=== PATIENT | female | born 1945 | race Caucasian/White ===

== ENCOUNTER → 2017-06-11 | Outpatient (CLI) | payer MEDICARE ==
[~2017-06-11] VITALS: Ht 172.7 cm; Wt 123.2 kg
[~2017-06-11] MED LIST: ASPI-586 PO; ASPI-875 PO; B CO1CAP PO; DOXY-233 PO; DXCC100C PO; FLAX1CAP6 PO; FLEC100T PO; FLEC100T2 PO; FRESHKOTE EYE OU; HYDR25TA4 PO; LOSA50TA6 PO; ONDA-42 SL; ONDA4TAB11 PO; OXYC1TAB87 PO; SULF1TAB7 PO
[2017-06-11 12:53] VITALS: BP 129/78
[2017-06-11 13:49] LABS: BASOPHILS % (AUTO) 0 % (0-10); EOSINOPHILS # (AUTO) 0.2 10^3/uL (0.0-0.3); EOSINOPHILS % (AUTO) 4 % (0-10); LYMPHOCYTES # (AUTO) 1.8 X 10^3 (1.0-4.0); LYMPHOCYTES % (AUTO) 37 % (12-44); MEAN CORPUSCULAR HEMOGLOBIN 34 PG (25-34); MEAN CORPUSCULAR HGB CONC 34 G/DL (32-36); MEAN CORPUSCULAR VOLUME 98 FL (80-99); MEAN PLATELET VOLUME 10.3 FL (7.4-10.4); MONOCYTES # (AUTO) 0.8 X 10^3 (0.0-1.0); MONOCYTES % (AUTO) 16 % (0-12); NEUTROPHILS # (AUTO) 2.1 X 10^3 (1.8-7.8); NEUTROPHILS % (AUTO) 43 % (42-75); PLATELET COUNT 219 10^3/uL (130-400); RED BLOOD COUNT 4.71 10^6/uL (4.35-5.85); RED CELL DISTRIBUTION WIDTH 13.2 % (10.0-14.5)
[2017-06-11 14:32] LABS: ALANINE AMINOTRANSFERASE 18 U/L (0-55); ALBUMIN 3.7 GM/DL (3.2-4.5); ANION GAP 11 MMOL/L (5-14); ASPARTATE AMINO TRANSFERASE 25 U/L (5-34); BILIRUBIN,TOTAL 1.3 MG/DL (0.1-1.0); BLOOD UREA NITROGEN 10 MG/DL (7-18); BUN/CREATININE RATIO 14; CALCIUM 9.3 MG/DL (8.5-10.1); CARBON DIOXIDE 24 MMOL/L (21-32); CHLORIDE 108 MMOL/L (98-107); CREATININE SERUM 0.71 MG/DL (0.60-1.30); GFR ESTIMATED > 60; GLUCOSE 94 MG/DL (70-105); POTASSIUM 3.9 MMOL/L (3.6-5.0); SODIUM 143 MMOL/L (135-145); TOTAL PROTEIN 7.3 GM/DL (6.4-8.2)
== END ==
LOC: PREOP 12:35
PROVIDERS: ATTEND Obstetrics & Gynecology
DX: Z01.812 Encounter for preprocedural laboratory examination (principal); C54.1 Malignant neoplasm of endometrium; I48.2 Chronic atrial fibrillation
CPT/HCPCS: 36415; 80053; 85025; 86850; 86900; 86901; 87081

== ENCOUNTER → 2019-06-02 | Outpatient (CLI) | payer MEDICARE ==
[~2019-06-02] VITALS: Ht 167 cm; Wt 122.0 kg
[~2019-06-02] MED LIST changes: +CARB15DR OU; +DOCU100C37 PO; +FA/M1TAB29 PO; +FLAX100031 PO; +Hydrocodone Bit/Acetaminophen PO; +IBUP-1773 PO; +LATA2.5D5 OU; +REGADENOSON 0.4 MG/5 ML SYR (LEXISCAN) IV ONE; +SIME80TA16 PO
[2019-06-02] MEDS: CATHETER FLUSH 10 ML SYR IV PRN ×2 (11:41→13:07)
[2019-06-02 13:06] VITALS: BP 129/81
--- NOTE | 2019-06-02 16:02 | STRESS TEST ---
DATE OF SERVICE: 06/02/2019 LEXISCAN MYOVIEW STRESS TEST REPORT Baseline heart rate is 62. Baseline blood pressure 129/81. Baseline EKG is sinus rhythm with occasional PVCs. In summary, the patient was injected with 10.47 mCi of technetium-99 Myoview and the resting images were obtained. Then, the patient received 0.4 mg of Lexiscan followed by 28.6 mCi of technetium-99 Myoview. Throughout the test, there were no EKG changes. The resting and stress images were reviewed and compared in the short axis, horizontal long axis, and vertical long axis views. Review of the images showed breast attenuation with reversible ischemia involving the mid to apical anterior wall and anterolateral wall. SSS is 11, SDS 11 TID value 1.08. On the gated images, the left ventricle appeared to be in normal size with normal contractility. Calculated ejection fraction 74%. CONCLUSION: 1. The patient tolerated Lexiscan well. 2. Breast attenuation with reversible ischemia involving the mid to apical anterior wall and anterolateral wall. 3. Normal left ventricular size with normal contractility. Calculated ejection fraction 74%. Job ID: [id number] DocumentID: [id number] Dictated Date: 06/02/2019 15:45:20 Clerk Typist Date: 06/02/2019 16:01:54 Dictated By: FERNANDO ALLISON MD
== END ==
LOC: CARD 11:12
PROVIDERS: ATTEND Internal Medicine Cardiovascular Disease
DX: I48.0 Paroxysmal atrial fibrillation (principal); I10 Essential (primary) hypertension; G47.33 Obstructive sleep apnea (adult) (pediatric)
CPT/HCPCS: 78452; 93017

== ENCOUNTER 2019-06-04 07:42 | Day surgery (SDC) | payer MEDICARE ==
[2019-06-04] VITALS (12 sets, daily range): BP systolic 109–168; BP diastolic 60–91
[~2019-06-04] VITALS: Ht 167 cm; Wt 120.0 kg
[~2019-06-04 07:42] MED LIST changes: -CARB15DR OU; -FA/M1TAB29 PO; -FLAX100031 PO; -LATA2.5D5 OU; -REGADENOSON 0.4 MG/5 ML SYR (LEXISCAN) IV ONE
[2019-06-04] MEDS ORDERED: NS IV 1000 ML 1,000 ML ONE (07:46)
[2019-06-04] MEDS ORDERED: LIDOCAINE 1% INJ 20 ML 20 ML VIAL ONE (07:46)
[2019-06-04] MEDS ORDERED: HEParin (CATH LAB) 2,000 ML IV ONE (07:46)
[2019-06-04] MEDS ORDERED: NS IV 1000 ML 1,000 ML IV SCH ×2 (07:50→11:11)
[2019-06-04 08:16] LABS: HEMOGLOBIN 15.8 G/DL (11.5-16.0); MEAN PLATELET VOLUME 10.1 FL (7.4-10.4); RED CELL DISTRIBUTION WIDTH 13.3 % (10.0-14.5); WHITE BLOOD COUNT 5.2 10^3/uL (4.3-11.0)
--- NOTE | 2019-06-04 08:17 | Diagnostic Imaging Report ---
INDICATION: Chest pain Portable chest at 8:07 AM Heart size and pulmonary vascularity are normal. Lungs are clear. There are no effusions or pneumothoraces. IMPRESSION: Negative chest Dictated by: Dictated on workstation # [id number]
[2019-06-04] MEDS ORDERED: methylPREDNISolone 125 MG (Solu-MEDROL) VIAL ONE (08:21)
[2019-06-04] MEDS ORDERED: LATA2.5D5 OU (08:27)
[2019-06-04] MEDS ORDERED: FA/M1TAB29 PO (08:27)
[2019-06-04] MEDS ORDERED: FLAX100031 PO (08:27)
[2019-06-04] MEDS ORDERED: CARB15DR OU (08:27)
[2019-06-04 08:28] LABS: INR 1.1 (0.8-1.4); PROTHROMBIN TIME PATIENT 14.5 SEC (12.2-14.7)
[2019-06-04 08:33] LABS: ALANINE AMINOTRANSFERASE 19 U/L (0-55); ALKALINE PHOSPHATASE 58 U/L (40-136); BILIRUBIN,TOTAL 1.6 MG/DL (0.1-1.0); BUN/CREATININE RATIO 13; CALCIUM 9.8 MG/DL (8.5-10.1); CARBON DIOXIDE 24 MMOL/L (21-32); CHLORIDE 104 MMOL/L (98-107); CREATININE SERUM 0.75 MG/DL (0.60-1.30); GFR ESTIMATED > 60; GLUCOSE 128 MG/DL (70-105); POTASSIUM 3.7 MMOL/L (3.6-5.0); SODIUM 140 MMOL/L (135-145); TOTAL PROTEIN 7.4 GM/DL (6.4-8.2)
[2019-06-04] MEDS ORDERED: methylPREDNISolone 125 MG (Solu-MEDROL) VIAL IVP ONE (09:00)
--- NOTE | 2019-06-04 10:28 | Cardiac Procedure Note-CS/ASA ---
Pre-Procedure Note Pre-Op Procedure Note H&P Reviewed The H&P was reviewed, patient examined and no changes noted. Date H&P Reviewed: Jun 04, 2019 Time H&P Reviewed: 10:28 Conscious Sedation Pre-Proced Time 10:28 ASA Score 3 For ASA 3 and 4: Consider anesthesia and medical clearance. Also, for patients with a history of failed moderate sedation consider anesthesia. Airway Lungs Heart ASA score ASA 1: a normal healthy patient ASA 2: a patient with a mild systemic disease (mid diabetes, controlled hypertension, obesity x ASA 3: a patient with a severe systemic disease that limits activity (angina, COPD, prior Myocardial infarction) ASA 4: a patient with an incapacitating disease that is a constant threat to life (CHF, renal failure) ASA 5: a moribund patient not expected to survive 24 hrs. (ruptured aneurysm) ASA 6: a declared brain- patient whose organs are being harvested. For emergent operations, add the letter E after the classification Mallampati Classification Grade 3 Sedation Plan Analgesia, Amnesia, Plan communicated to team members, Discussed options with patient/fam, Discussed risks with patient/fam The patient is an appropriate candidate to undergo the planned procedure, sedation, and anesthesia. The patient immediately re-assessed prior to indication. FERNANDO ALLISON MD Jun 04, 2019 10:28 POS
[2019-06-04] MEDS ORDERED: HEParin 1000 UNIT/ML (10ML VIAL) FOR BOLUS ONE (10:30)
[2019-06-04] MEDS ORDERED: diphenhydrAMINE 50 MG/ML INJ (BENADRYL) ONE (10:30)
[2019-06-04] MEDS ORDERED: VERAPAMIL 5 MG/2 ML (CALAN) VIAL IV ONE (10:30)
[2019-06-04] MEDS ORDERED: MIDAZOLAM 5 MG/5 ML (VERSED) VIAL ONE (10:30)
[2019-06-04] MEDS ORDERED: NITRO DRIP 25000 MCG/D5W 250 ML IV ONE (10:30)
[2019-06-04] MEDS ORDERED: fentaNYL INJECTION 100 MCG/2 ML AMP ONE (10:30)
--- NOTE | 2019-06-04 11:12 | Discharge Inst-Post CATH ---
Discharge Inst-CATH/EP Problems Reviewed?: Yes Post Cardiac Cath/EP D/C Inst Follow Up/Plan Appointment with Dr. Baker's office in 2-4 weeks <b>CARDIAC CATH/EP PROCEDURE DISCHARGE INSTRUCTIONS</b> ACTIVITY * Go Home directly and rest. * Limit activity of the leg (or wrist if it was used) for 7 days including aerobics, swimming, jogging, bicycling, etc. * Restrict stair-climbing for 7 days if possible, if not, climb up with your non-cath leg, then bring together on the same step. * Avoid lifting, pushing, pulling or excessive movement of the affected extremity for 7 days. * Customary sexual activity may be resumed after 2 days-use caution not to use a position that strains or causes pain to the affected extremity. * No driving for 24 hours. * NO SMOKING. * Avoid straining for bowel movements for 7 days. * Gentle walking on level ground is allowed. * Returning to work will depend on the type of procedure and the results. Your doctor will discuss this with you. CALL YOUR DOCTOR FOR ANY OF THE FOLLOWING: *If bleeding from the puncture site occurs- Apply gentle pressure to site with clean cloth and call your doctor or EMS. * If a knot or lump forms under the skin, increases in size, or causes pain. * If bruising appears to be worsening or moving further down your leg instead of disappearing. * Temperature above 101 F. CARE OF YOUR GROIN INCISION; * Bruising or purple discoloration of the skin near the puncture site is common. * You may shower only, no bathtub bathing for 5 days. Be careful to avoid slipping as your leg may feel stiff. * If a closure device was used on your femoral artery, please see the attached guide regarding care of the device and your leg. * Leave dressing on FOR 24 hours. CARE OF YOUR WRIST INCISION; * Bruising or purple discoloration of the skin near the puncture site is common. * You may shower. * DO NOT submerge wrist. * Leave dressing on FOR 24 hours. FERNANDO BAKER MD Jun 04, 2019 11:12 POS
--- NOTE | 2019-06-04 11:17 | Cardiac Cath Report ---
Cardiac Cath Report Physician (s)/Facility Security Officer (s) Physician FERNANDO ALLISON MD Pre-Procedure Diagnosis Pre-Procedure Diagnosis: Coronary artery disease, atrial fibrillation Post-Procedure Note Procedure Start Date: Jun 04, 2019 Name of Procedure: Left heart catheterization Aortic arch angiogram Findings/Procedure Note PROCEDURE NOTE: 73-year-old lady with history of paroxysmal atrial fibrillation maintained on flecainide had an abnormal stress test with anterior wall ischemia scheduled for cardiac catheterization possible PTCA, during the procedure I had difficulty advancing the wire and the sheath through the right innominate artery and the proximal aorta, at the end of the coronary angiogram I perform aortic arch angiogram. After explaining the procedure to the patient, all pros and cons were explained, all questions were answered. The patient signed the consent and then she was placed on the cardiac catheterization laboratory. Groin was prepped SL fashion local anesthesia was used. Sheath placed in the right radial artery, [place] catheter was used to access coronary system, angiogram was done, advanced to the left ventricular cavity pressure was measured pullback LV to aorta was done, I did aortic arch and a gram to evaluate the aortic arch and the innominate artery due to the significant tortuosity At the end of the procedure the sheath was removed. vascular band was used FINDINGS: Hemodynamics LV 117/11, end-diastolic pressure of 11 Aorta 109/63 mean of 84 ANATOMY: Left Main is free of obstructive disease Left Anterior Descending has mild disease nonobstructive disease Left Circumflex has mild disease nonobstructive disease Right Coronory Artery has mild disease nonobstructive disease LV Gram was not done, pressure was measured Aorta evaluation done with aortic arch angiogram showing normal aortic arch, no dissection or aneurysm, tortuous proximal innominate artery and right carotid artery, no dissection or aneurysm, normal left carotid and left subclavian artery CONCLUSION: 1. Mild coronary artery disease no significant obstructive disease 2. Normal left ventricle end-diastolic pressure 3. Normal aortic arch and great vessels of the neck DISCUSSION AND RECOMMENDATION: medical therapy is recommended no intervention is needed Anesthesia Type: Conscious Sedation Estimated blood loss (mL): 10 ml Contrast Amount: 40 ml Total Radiation Dose: 167 mGy Post-Procedure Diagnosis Post-operative diagnosis: Coronary artery disease Paroxysmal atrial fibrillation Hypertension Hyperlipidemia FERNANDO ALLISON MD Jun 04, 2019 11:17 POS
--- NOTE | 2019-06-04 11:37 | NUR ---
SPOKE WITH PT (SHE HAD HER BOTTLES) AND CALLED [facility] TO COMPLETE THE MED REC. PT WAS ABLE TO TELL ME HER MEDS AND HOW SHE TAKES THEM. THE FOLLOWING ARE FILL DATES FROM [facility]: FLECAINIDE #180/90DS 04-07-2019 HCTZ #90/90DS 05-25-2019 LATANOPROST #08/14DS OTC MEDS: [employer] FLAX SEED REFRESH ASPIRIN 81
[2019-06-04] MEDS ORDERED: ACETAMINOPHEN 500 MG TAB (TYLENOL) ONE (13:24)
[2019-06-04] MEDS ORDERED: ACETAMINOPHEN 500 MG TAB (TYLENOL) PO ONE (13:30)
== END 2019-06-04 14:20 | disposition home or self-care (01) ==
LOC: CATH 07:42 → SDC 11:30 → CATH 14:20
PROVIDERS: ATTEND Internal Medicine Cardiovascular Disease
DX: I25.10 Atherosclerotic heart disease of native coronary artery without angina pectoris (principal); I48.0 Paroxysmal atrial fibrillation; I10 Essential (primary) hypertension; E78.5 Hyperlipidemia, unspecified; G47.33 Obstructive sleep apnea (adult) (pediatric); Z88.6 Allergy status to analgesic agent; Z88.3 Allergy status to other anti-infective agents; J44.9 Chronic obstructive pulmonary disease, unspecified; Z79.82 Long term (current) use of aspirin; E66.01 Morbid (severe) obesity due to excess calories; Z68.41 Body mass index [BMI] 40.0-44.9, adult; K21.9 Gastro-esophageal reflux disease without esophagitis; Z80.3 Family history of malignant neoplasm of breast; Z83.3 Family history of diabetes mellitus; Z82.49 Family history of ischemic heart disease and other diseases of the circulatory system; Z90.49 Acquired absence of other specified parts of digestive tract; Z90.722 Acquired absence of ovaries, bilateral; Z90.79 Acquired absence of other genital organ(s); Z90.710 Acquired absence of both cervix and uterus
CPT/HCPCS: 36221; 36415; 71045; 80053; 85027; 85610; 85730; 87081; 93458

== ENCOUNTER 2019-06-24 05:45 | Outpatient (CLI) | payer MEDICARE ==
[~2019-06-24] VITALS: Ht 167.7 cm; Wt 120.0 kg
[~2019-06-24 05:45] MED LIST changes: +CARB15DR OU; +FA/M1TAB29 PO; +FLAX100031 PO; +LATA2.5D5 OU
[2019-07-02] MEDS ORDERED: CEPH-507 PO (11:17)
[2019-07-02] MEDS ORDERED: ACHD5005 PO (11:17)
== END 2019-06-24 13:53 | disposition home or self-care (01) ==
LOC: PREOP 05:45
PROVIDERS: ATTEND Otolaryngology Otolaryngology/Facial Plastic Surgery
DX: Z01.818 Encounter for other preprocedural examination (principal)

== ENCOUNTER → 2019-06-30 | Day surgery (SDC) | payer MEDICARE ==
[~2019-06-30] VITALS: Ht 168 cm; Wt 122.0 kg
[~2019-06-30] MED LIST changes: +ACHD5005 PO; +CEPH-507 PO; +LIDOCAINE 1% INJ 20 ML 20 ML VIAL INJ ONE; +LIDOCAINE 1% INJ 20 ML 20 ML VIAL ONE
[2019-06-30 08:26] VITALS: BP 164/91
[2019-06-30 09:48] VITALS: BP 134/70
--- NOTE | 2019-06-30 09:48 | Implantation of Loop Monitor ---
Implant of Loop Monitior IMPLANTATION OF LOOP MONITOR REPORT DATE OF PROCEDURE: 06/30/19 PREOP DIAGNOSIS: proximal atrial fibrillation POSTOP DIAGNOSIS: paroxysmal atrial fibrillation PROCEDURE DETAILS: The patient is a 73 female with history of paroxysmal atrial fibrillation requiring long-term surveillance. Therefore implantable loop recorder was discussed and agreed with the patient. Informed consent was taken. All risks and complications were discussed at length. The patient was draped and prepped in the usual sterile fashion. Local anesthesia was lidocaine, which was given in the substernal area close to the 4th intercostal space. Loop monitor chronic with serial number [id number] implanted according to the protocol. Steri- Strips were placed at the end of the procedure. There were no complications and the patient tolerated the procedure well. The device was interrogated with a voltage of. ANESTHESIA: Local anesthesia with lidocaine. COMPLICATIONS: None CONTRAST/FLUOROSCOPY: None CONCLUSION: Successful implantation of a loop recorder would no complications FINAL DIAGNOSIS: Paroxysmal atrial fibrillation Palpitation Coronary artery disease Hypertension FERNANDO ALLISON MD Jun 30, 2019 09:48 POS
== END ==
LOC: CATH 07:55
PROVIDERS: ATTEND Internal Medicine Cardiovascular Disease
DX: I48.0 Paroxysmal atrial fibrillation (principal); I25.10 Atherosclerotic heart disease of native coronary artery without angina pectoris; I10 Essential (primary) hypertension; G47.33 Obstructive sleep apnea (adult) (pediatric); Z88.8 Allergy status to other drugs, medicaments and biological substances; Z79.82 Long term (current) use of aspirin; Z79.899 Other long term (current) drug therapy; Z80.3 Family history of malignant neoplasm of breast; Z83.3 Family history of diabetes mellitus; Z82.49 Family history of ischemic heart disease and other diseases of the circulatory system
CPT/HCPCS: 33285

== ENCOUNTER 2021-05-02 07:16 | Day surgery (SDC) | payer MEDICARE ==
[2021-05-02] VITALS (7 sets, daily range): BP systolic 139–193; BP diastolic 87–899
[~2021-05-02] VITALS: Ht 167.6 cm; Wt 121.1 kg
[~2021-05-02 07:16] MED LIST changes: -LIDOCAINE 1% INJ 20 ML 20 ML VIAL INJ ONE; -LIDOCAINE 1% INJ 20 ML 20 ML VIAL ONE
[2021-05-02] MEDS ORDERED: NS IV 1000 ML 1,000 ML ONE (07:22)
[2021-05-02] MEDS ORDERED: LIDOCAINE 2% VISCOUS 15 ML UDC ONE (07:22)
[2021-05-02] MEDS ORDERED: LIDOCAINE 2% VISCOUS 15 ML UDC PO ONE (07:30)
[2021-05-02] MEDS ORDERED: MIDAZOLAM 5 MG/5 ML (VERSED) VIAL IV ONE (07:30)
[2021-05-02] MEDS ORDERED: fentaNYL INJ 100 MCG/2 ML AMP IV ONE (07:30)
[2021-05-02] MEDS ORDERED: NS IV 1000 ML 1,000 ML IV ONE (07:30)
[2021-05-02 07:56] LABS: HEMATOCRIT 46 % (35-52); HEMOGLOBIN 15.8 g/dL (11.5-16.0); MEAN CORPUSCULAR HEMOGLOBIN 35 pg (25-34); MEAN CORPUSCULAR HGB CONC 34 g/dL (32-36); MEAN CORPUSCULAR VOLUME 102 fL (80-99); MEAN PLATELET VOLUME 9.4 fL (9.0-12.2); PLATELET COUNT 204 10^3/uL (130-400); WHITE BLOOD COUNT 5.3 10^3/uL (4.3-11.0)
[2021-05-02 07:57] LABS: BILIRUBIN,URINE NEGATIVE (NEGATIVE); CLARITY,URINE CLEAR; COLOR,URINE YELLOW; GLUCOSE, URINE (UA) NEGATIVE (NEGATIVE); KETONES,URINE NEGATIVE (NEGATIVE); LEUKOCYTE ESTERASE ,URINE 2+ (NEGATIVE); NITRITE,URINE NEGATIVE (NEGATIVE); PH,URINE 6.5 (5-9); PROTEIN,URINE NEGATIVE (NEGATIVE)
[2021-05-02] MEDS ORDERED: MIDAZOLAM 2 MG/2 ML (VERSED) VIAL ONE (07:58)
[2021-05-02] MEDS ORDERED: proPOfol 200 MG/20 ML (DIPRIVAN) VIAL IV ONE (07:58)
[2021-05-02 08:06] LABS: BACTERIA,URINE MODERATE /HPF; WBC,URINE 25-50 /HPF
[2021-05-02 08:14] LABS: ALBUMIN 3.5 GM/DL (3.2-4.5); INR 2.2 (0.8-1.4); POTASSIUM 3.7 MMOL/L (3.6-5.0)
[2021-05-02 08:15] LABS: CALCIUM 9.4 MG/DL (8.5-10.1)
[2021-05-02 08:17] LABS: TOTAL PROTEIN 6.9 GM/DL (6.4-8.2)
[2021-05-02 08:20] LABS: CREATININE SERUM 0.69 MG/DL (0.60-1.30)
[2021-05-02] MEDS ORDERED: MULT-1060 PO (08:20)
[2021-05-02] MEDS ORDERED: FLAX1CAP4 PO (08:20)
[2021-05-02] MEDS ORDERED: FLUO40CR8 TP (08:20)
[2021-05-02] MEDS ORDERED: LATA7.5D OU (08:20)
[2021-05-02] MEDS ORDERED: VITA1TAB33 PO (08:20)
[2021-05-02] MEDS ORDERED: ASPI-1238 PO (08:20)
[2021-05-02] MEDS ORDERED: MINE3.5O41 OU (08:20)
[2021-05-02] MEDS ORDERED: FLEC100T PO (08:20)
[2021-05-02] MEDS ORDERED: RIVA20TA PO (08:20)
[2021-05-02] MEDS ORDERED: CARB15DR OU (08:20)
[2021-05-02] MEDS ORDERED: IBUP-2473 PO (08:21)
--- NOTE | 2021-05-02 08:21 | Diagnostic Imaging Report ---
Indication: Pre-transesophageal echo. TIME OF EXAM: 7:51 AM Correlation is made with prior chest 06/04/2019. Heart size stable. Monitoring device overlies the heart. Lungs are clear. No infiltrate is seen. There is no failure. No effusion or pneumothorax is identified. IMPRESSION: Mild cardiomegaly. No acute cardiopulmonary process is detected. Dictated by: Dictated on workstation # [id number]
--- NOTE | 2021-05-02 08:56 | Conscious Sedation/ASA ---
Conscious Sedation Pre-Proced Time 08:56 ASA Score 3 For ASA 3 and 4: Consider anesthesia and medical clearance. Also, for patients with a history of failed moderate sedation consider anesthesia. Airway Lungs Heart ASA score ASA 1: a normal healthy patient ASA 2: a patient with a mild systemic disease (mid diabetes, controlled hypertension, obesity x ASA 3: a patient with a severe systemic disease that limits activity (angina, COPD, prior Myocardial infarction) ASA 4: a patient with an incapacitating disease that is a constant threat to life (CHF, renal failure) ASA 5: a moribund patient not expected to survive 24 hrs. (ruptured aneurysm) ASA 6: a declared brain- patient whose organs are being harvested. For emergent operations, add the letter E after the classification Mallampati Classification Grade 3 Sedation Plan Analgesia, Amnesia, Plan communicated to team members, Discussed options with patient/fam, Discussed risks with patient/fam The patient is an appropriate candidate to undergo the planned procedure, sedation, and anesthesia. The patient immediately re-assessed prior to indication. FERNANDO ALLISON MD May 02, 2021 08:56
--- NOTE | 2021-05-02 08:57 | Cardioversion ---
Cardioversion PROCEDURE PHYSICIAN: Fernando Baker DATE OF PROCEDURE: 05/02/21 DIRECT EXTERNAL ELECTRICAL CARDIOVERSION: Indications: Atrial Fibrillation with rapid ventricular rate Preoperative diagnoses: Atrial Fibrillation with rapid ventricular rate Postoperative diagnosis: Sinus rhythm, Successful Electrical Cardioversion Anesthesia: By Anesthesia services Complications: None Specimen: None Contrast: 0 Flouroscopy: none Procedure Details: The patient was brought the lab assistant after informed consent was taken, all the risks and complications were explained including the risk of stroke. Electrical cardioversion was carried out with anesthesia support with propofol. 200 joules of synchronized shock was delivered through external patches which promptly restored sinus rhythm. The patient tolerated the procedure well. Conclusions: Successful electrical cardioversion in terminating atrial fibrillation Final Diagnosis: Paroxysmal atrial fibrillation Palpitation Hypertension FERNANDO BAKER MD May 02, 2021 08:57
--- NOTE | 2021-05-02 08:59 | Discharge Inst-Post CATH ---
Discharge Inst-CATH/EP Problems Reviewed?: Yes Post Cardiac Cath/EP D/C Inst Follow Up/Plan Appointment with Dr. Baker's office next week <b>CARDIAC CATH/EP PROCEDURE DISCHARGE INSTRUCTIONS</b> ACTIVITY * Go Home directly and rest. * Limit activity of the leg (or wrist if it was used) for 7 days including aerobics, swimming, jogging, bicycling, etc. * Restrict stair-climbing for 7 days if possible, if not, climb up with your non-cath leg, then bring together on the same step. * Avoid lifting, pushing, pulling or excessive movement of the affected extremity for 7 days. * Customary sexual activity may be resumed after 2 days-use caution not to use a position that strains or causes pain to the affected extremity. * No driving for 24 hours. * NO SMOKING. * Avoid straining for bowel movements for 7 days. * Gentle walking on level ground is allowed. * Returning to work will depend on the type of procedure and the results. Your doctor will discuss this with you. CALL YOUR DOCTOR FOR ANY OF THE FOLLOWING: *If bleeding from the puncture site occurs- Apply gentle pressure to site with clean cloth and call your doctor or EMS. * If a knot or lump forms under the skin, increases in size, or causes pain. * If bruising appears to be worsening or moving further down your leg instead of disappearing. * Temperature above 101 F. CARE OF YOUR GROIN INCISION; * Bruising or purple discoloration of the skin near the puncture site is common. * You may shower only, no bathtub bathing for 5 days. Be careful to avoid slipping as your leg may feel stiff. * If a closure device was used on your femoral artery, please see the attached guide regarding care of the device and your leg. * Leave dressing on FOR 24 hours. CARE OF YOUR WRIST INCISION; * Bruising or purple discoloration of the skin near the puncture site is common. * You may shower. * DO NOT submerge wrist. * Leave dressing on FOR 24 hours. FERNANDO BAKER MD May 02, 2021 08:58
[2021-05-02] MEDS ORDERED: CHLORASEPTIC LOZENGE MM ONE (09:30)
--- NOTE | 2021-05-02 12:48 | Anesthesia-General Post-Op ---
MAC Patient Condition Mental Status/LOC: Same as Preop Cardiovascular: Satisfactory Nausea/Vomiting: Absent Respiratory: Satisfactory Pain: Controlled Complications: Absent Post Op Complications Complications None Follow Up Care/Instructions Patient Instructions None needed. Anesthesiology Discharge Order Discharge Order Patient is doing well, no complaints, stable vital signs, no apparent adverse anesthesia problems. No complications reported per nursing. KENYON ERIC CRNA May 02, 2021 12:48
== END 2021-05-02 10:20 | disposition home or self-care (01) ==
LOC: SDC 07:16
PROVIDERS: ATTEND Internal Medicine Cardiovascular Disease
DX: I48.0 Paroxysmal atrial fibrillation (principal); I48.20 Chronic atrial fibrillation, unspecified; I10 Essential (primary) hypertension; I25.10 Atherosclerotic heart disease of native coronary artery without angina pectoris; G47.33 Obstructive sleep apnea (adult) (pediatric); J44.9 Chronic obstructive pulmonary disease, unspecified; E66.01 Morbid (severe) obesity due to excess calories; E78.2 Mixed hyperlipidemia; Z79.899 Other long term (current) drug therapy; Z79.82 Long term (current) use of aspirin; Z68.41 Body mass index [BMI] 40.0-44.9, adult; Z79.1 Long term (current) use of non-steroidal anti-inflammatories (NSAID); Z79.01 Long term (current) use of anticoagulants
CPT/HCPCS: 36415; 71045; 80053; 80061; 81000; 85027; 85610; 85730; 87077; 87081; 87088; 92960; 93005; 93312

== ENCOUNTER 2021-12-05 08:26 | Day surgery (SDC) | payer MEDICARE ==
[~2021-12-05] VITALS: Ht 167.6 cm; Wt 124.5 kg
[2021-12-05] VITALS (7 sets, daily range): BP systolic 117–140; BP diastolic 71–85
[~2021-12-05 08:26] MED LIST changes: +ASPI-1238 PO; +FLAX1CAP4 PO; +FLUO40CR8 TP; +IBUP-2473 PO; +LATA7.5D OU; +MINE3.5O41 OU; +MULT-1060 PO; +RIVA20TA PO; +VITA1TAB33 PO
[2021-12-05] MEDS ORDERED: NS IV 1000 ML 1,000 ML IV SCH (08:45)
[2021-12-05] MEDS ORDERED: proPOfol 200 MG/20 ML (DIPRIVAN) VIAL IV ONE (09:14)
[2021-12-05] MEDS ORDERED: MIDAZOLAM 2 MG/2 ML (VERSED) VIAL ONE (09:14)
[2021-12-05 09:48] LABS: ALBUMIN 3.5 GM/DL (3.2-4.5); BILIRUBIN,TOTAL 2.2 MG/DL (0.1-1.0); CALCIUM 9.5 MG/DL (8.5-10.1); CREATININE SERUM 0.72 MG/DL (0.60-1.30); POTASSIUM 4.1 MMOL/L (3.6-5.0)
--- NOTE | 2021-12-05 09:56 | Conscious Sedation/ASA ---
Conscious Sedation Pre-Proced Time 09:00 ASA Score 3 For ASA 3 and 4: Consider anesthesia and medical clearance. Also, for patients with a history of failed moderate sedation consider anesthesia. Airway Lungs Heart ASA score ASA 1: a normal healthy patient ASA 2: a patient with a mild systemic disease (mid diabetes, controlled hypertension, obesity x ASA 3: a patient with a severe systemic disease that limits activity (angina, COPD, prior Myocardial infarction) ASA 4: a patient with an incapacitating disease that is a constant threat to life (CHF, renal failure) ASA 5: a moribund patient not expected to survive 24 hrs. (ruptured aneurysm) ASA 6: a declared brain- patient whose organs are being harvested. For emergent operations, add the letter E after the classification Mallampati Classification Grade 3 Sedation Plan Analgesia, Amnesia, Plan communicated to team members, Discussed options with patient/fam, Discussed risks with patient/fam The patient is an appropriate candidate to undergo the planned procedure, sedation, and anesthesia. The patient immediately re-assessed prior to indication. FERNANDO ALLISON MD December 05, 2021 09:56
--- NOTE | 2021-12-05 09:57 | Cardioversion ---
Cardioversion PROCEDURE PHYSICIAN: Fernando Baker DATE OF PROCEDURE: 12/05/21 DIRECT EXTERNAL ELECTRICAL CARDIOVERSION: Indications: Atrial Fibrillation with rapid ventricular rate Preoperative diagnoses: Atrial Fibrillation with rapid ventricular rate Postoperative diagnosis: Sinus rhythm Anesthesia: By Anesthesia services Complications: None Specimen: None Contrast: 0 Flouroscopy: none Procedure Details: The patient was brought the cork slabs sawyer after informed consent was taken, all the risks and complications were explained including the risk of stroke. Electrical cardioversion was carried out with anesthesia support with propofol. 200 joules of synchronized shock was delivered through external patches which failed to restore sinus rhythm, patient was given 5 mg of IV Lopressor, second cardioversion shock was delivered with 200 J, continue to be tachycardic then she slowed down to sinus rhythm. Conclusions: Successful to attempt for cardioversion in terminating atrial fibrillation Final Diagnosis: Paroxysmal atrial fibrillation Palpitation Hypertension FERNANDO BAKER MD December 05, 2021 09:57
[2021-12-05] MEDS ORDERED: DILT120C82 PO (09:59)
--- NOTE | 2021-12-05 09:59 | Discharge Inst-Post CATH ---
Discharge Inst-CATH/EP Problems Reviewed?: Yes Post Cardiac Cath/EP D/C Inst Follow Up/Plan Appointment with Dr. Baker's office in 1 week <b>CARDIAC CATH/EP PROCEDURE DISCHARGE INSTRUCTIONS</b> ACTIVITY * Go Home directly and rest. * Limit activity of the leg (or wrist if it was used) for 7 days including aerobics, swimming, jogging, bicycling, etc. * Restrict stair-climbing for 7 days if possible, if not, climb up with your non-cath leg, then bring together on the same step. * Avoid lifting, pushing, pulling or excessive movement of the affected extremity for 7 days. * Customary sexual activity may be resumed after 2 days-use caution not to use a position that strains or causes pain to the affected extremity. * No driving for 24 hours. * NO SMOKING. * Avoid straining for bowel movements for 7 days. * Gentle walking on level ground is allowed. * Returning to work will depend on the type of procedure and the results. Your doctor will discuss this with you. CALL YOUR DOCTOR FOR ANY OF THE FOLLOWING: *If bleeding from the puncture site occurs- Apply gentle pressure to site with clean cloth and call your doctor or EMS. * If a knot or lump forms under the skin, increases in size, or causes pain. * If bruising appears to be worsening or moving further down your leg instead of disappearing. * Temperature above 101 F. CARE OF YOUR GROIN INCISION; * Bruising or purple discoloration of the skin near the puncture site is common. * You may shower only, no bathtub bathing for 5 days. Be careful to avoid slipping as your leg may feel stiff. * If a closure device was used on your femoral artery, please see the attached guide regarding care of the device and your leg. * Leave dressing on FOR 24 hours. CARE OF YOUR WRIST INCISION; * Bruising or purple discoloration of the skin near the puncture site is common. * You may shower. * DO NOT submerge wrist. * Leave dressing on FOR 24 hours. FERNANDO BAKER MD December 05, 2021 09:59
[2021-12-05] MEDS ORDERED: meTOprolol 5 MG/5 ML (LOPRESSOR) VIAL IV ONE (10:00)
[2021-12-05] MEDS ORDERED: dilTIAZem120 MG (CARDIZEM CD) CAP PO SCH (10:00)
[2021-12-05] MEDS ORDERED: FLEC150T2 PO (10:10)
== END 2021-12-05 11:25 | disposition home or self-care (01) ==
LOC: SDC 08:26 → CATH 11:25
PROVIDERS: ATTEND Internal Medicine Cardiovascular Disease
DX: I48.0 Paroxysmal atrial fibrillation (principal); R00.2 Palpitations; I10 Essential (primary) hypertension; E78.2 Mixed hyperlipidemia; E66.01 Morbid (severe) obesity due to excess calories; Z68.41 Body mass index [BMI] 40.0-44.9, adult; I25.10 Atherosclerotic heart disease of native coronary artery without angina pectoris; I65.29 Occlusion and stenosis of unspecified carotid artery; J44.9 Chronic obstructive pulmonary disease, unspecified; G47.33 Obstructive sleep apnea (adult) (pediatric); I65.23 Occlusion and stenosis of bilateral carotid arteries; Z79.82 Long term (current) use of aspirin; Z79.01 Long term (current) use of anticoagulants; Z28.310 Unvaccinated for COVID-19; Z28.9 Immunization not carried out for unspecified reason
CPT/HCPCS: 36415; 80053; 80061; 87081; 92960; 93005

== ENCOUNTER 2022-02-18 07:31 | Day surgery (SDC) | payer MEDICARE ==
[2022-02-18] VITALS (12 sets, daily range): BP systolic 113–153; BP diastolic 70–102
[~2022-02-18] VITALS: Ht 167 cm; Wt 132.0 kg
[~2022-02-18 07:31] MED LIST changes: +DILT120C82 PO; +FLEC150T2 PO
[2022-02-18] MEDS ORDERED: NS IV 1000 ML 1,000 ML IV SCH (07:45)
[2022-02-18] MEDS ORDERED: proPOfol 200 MG/20 ML (DIPRIVAN) VIAL IV ONE ×2 (08:11→09:25)
[2022-02-18] MEDS ORDERED: NS IV 1000 ML 1,000 ML ONE (08:12)
[2022-02-18] MEDS ORDERED: DRON400T6 PO (08:16)
[2022-02-18] MEDS ORDERED: FURO40TA4 PO (08:16)
[2022-02-18] MEDS ORDERED: POTA-51 PO (08:16)
[2022-02-18 08:23] LABS: BASOPHILS % (AUTO) 1 % (0-10); EOSINOPHILS # (AUTO) 0.2 10^3/uL (0.0-0.3); EOSINOPHILS % (AUTO) 4 % (0-10); HEMATOCRIT 43 % (35-52); HEMOGLOBIN 14.2 g/dL (11.5-16.0); LYMPHOCYTES # (AUTO) 1.6 10^3/uL (1.0-4.0); LYMPHOCYTES % (AUTO) 40 % (12-44); MEAN CORPUSCULAR HEMOGLOBIN 34 pg (25-34); MEAN CORPUSCULAR HGB CONC 33 g/dL (32-36); MEAN CORPUSCULAR VOLUME 102 fL (80-99); MEAN PLATELET VOLUME 9.8 fL (9.0-12.2); MONOCYTES # (AUTO) 0.7 10^3/uL (0.0-1.0); MONOCYTES % (AUTO) 16 % (0-12); NEUTROPHILS # (AUTO) 1.6 10^3/uL (1.8-7.8); NEUTROPHILS % (AUTO) 39 % (42-75); PLATELET COUNT 163 10^3/uL (130-400)
[2022-02-18 08:33] LABS: ALBUMIN 3.4 GM/DL (3.2-4.5); BILIRUBIN,TOTAL 2.7 MG/DL (0.1-1.0); CALCIUM 8.8 MG/DL (8.5-10.1); CREATININE SERUM 0.92 MG/DL (0.60-1.30); POTASSIUM 3.9 MMOL/L (3.6-5.0); TOTAL PROTEIN 6.7 GM/DL (6.4-8.2)
[2022-02-18] MEDS ORDERED: FUROSEMIDE 40 MG/4 ML INJ (LASIX) ONE (09:25)
--- NOTE | 2022-02-18 09:26 | Cardioversion ---
Cardioversion PROCEDURE PHYSICIAN: Fernando Baker DATE OF PROCEDURE: 02/18/22 DIRECT EXTERNAL ELECTRICAL CARDIOVERSION: Indications: Atrial Fibrillation with rapid ventricular rate Preoperative diagnoses: Atrial Fibrillation with rapid ventricular rate Postoperative diagnosis: Sinus rhythm, Successful Electrical Cardioversion History: 76-year-old lady with paroxysmal atrial fibrillation, patient is back in atrial fibrillation, maintained on antiarrhythmic medication. Tolerating anticoagulation. Scheduled for electrical cardioversion. Anesthesia: By Anesthesia services Complications: None Specimen: None Contrast: 0 Flouroscopy: none Procedure Details: The patient was brought the computer lab para professional after informed consent was taken, all the risks and complications were explained including the risk of stroke. Electrical cardioversion was carried out with anesthesia support with propofol. 200 joules of synchronized shock was delivered through external patches which promptly restored sinus rhythm. The patient tolerated the procedure well. Conclusions: Successful electrical cardioversion and terminating atrial fibrillation with no complications Final Diagnosis: Paroxysmal atrial fibrillation Palpitation Hypertension Hyperlipidemia FERNANDO BAKER MD Feb 18, 2022 09:26
--- NOTE | 2022-02-18 09:28 | Discharge Inst-Post CATH ---
Discharge Inst-CATH/EP Problems Reviewed?: Yes Post Cardiac Cath/EP D/C Inst Follow Up/Plan Appointment with Dr. Baker's office in 1 week <b>CARDIAC CATH/EP PROCEDURE DISCHARGE INSTRUCTIONS</b> ACTIVITY * Go Home directly and rest. * Limit activity of the leg (or wrist if it was used) for 7 days including aerobics, swimming, jogging, bicycling, etc. * Restrict stair-climbing for 7 days if possible, if not, climb up with your non-cath leg, then bring together on the same step. * Avoid lifting, pushing, pulling or excessive movement of the affected extremity for 7 days. * Customary sexual activity may be resumed after 2 days-use caution not to use a position that strains or causes pain to the affected extremity. * No driving for 24 hours. * NO SMOKING. * Avoid straining for bowel movements for 7 days. * Gentle walking on level ground is allowed. * Returning to work will depend on the type of procedure and the results. Your doctor will discuss this with you. CALL YOUR DOCTOR FOR ANY OF THE FOLLOWING: *If bleeding from the puncture site occurs- Apply gentle pressure to site with clean cloth and call your doctor or EMS. * If a knot or lump forms under the skin, increases in size, or causes pain. * If bruising appears to be worsening or moving further down your leg instead of disappearing. * Temperature above 101 F. CARE OF YOUR GROIN INCISION; * Bruising or purple discoloration of the skin near the puncture site is common. * You may shower only, no bathtub bathing for 5 days. Be careful to avoid slipping as your leg may feel stiff. * If a closure device was used on your femoral artery, please see the attached guide regarding care of the device and your leg. * Leave dressing on FOR 24 hours. CARE OF YOUR WRIST INCISION; * Bruising or purple discoloration of the skin near the puncture site is common. * You may shower. * DO NOT submerge wrist. * Leave dressing on FOR 24 hours. FERNANDO BAKER MD Feb 18, 2022 09:28
--- NOTE | 2022-02-18 09:43 | Anesthesia-General Post-Op ---
MAC Patient Condition Mental Status/LOC: Same as Preop Cardiovascular: Satisfactory Nausea/Vomiting: Absent Respiratory: Satisfactory Pain: Controlled Complications: Absent Post Op Complications Complications None Follow Up Care/Instructions Patient Instructions None needed. Anesthesiology Discharge Order Discharge Order Patient is doing well, no complaints, stable vital signs, no apparent adverse anesthesia problems. No complications reported per nursing. STUART FARR DO Feb 18, 2022 09:43
[2022-02-18] MEDS ORDERED: FUROSEMIDE 40 MG/4 ML INJ (LASIX) IVP ONE (09:45)
== END 2022-02-18 11:07 | disposition home or self-care (01) ==
LOC: CATH 07:31
PROVIDERS: ATTEND Internal Medicine Cardiovascular Disease
DX: I48.0 Paroxysmal atrial fibrillation (principal); I10 Essential (primary) hypertension; E78.5 Hyperlipidemia, unspecified
CPT/HCPCS: 36415; 80053; 85025; 87081; 92960; 93005

== ENCOUNTER 2022-03-28 05:37 | Outpatient (CLI) | payer MEDICARE ==
[~2022-03-28] VITALS: Ht 167.7 cm; Wt 127.1 kg
[~2022-03-28 05:37] MED LIST changes: +DRON400T6 PO; +FURO40TA4 PO; +POTA-51 PO
== END 2022-03-29 14:20 | disposition home or self-care (01) ==
LOC: PREOP 05:37
PROVIDERS: ATTEND Otolaryngology Otolaryngology/Facial Plastic Surgery
DX: Z01.818 Encounter for other preprocedural examination (principal)

== ENCOUNTER 2022-05-30 05:35 | Outpatient (CLI) | payer MEDICARE ==
[~2022-05-30] VITALS: Ht 167.5 cm; Wt 125.0 kg
== END 2022-05-30 15:36 | disposition home or self-care (01) ==
LOC: PREOP 05:35
PROVIDERS: ATTEND Otolaryngology Otolaryngology/Facial Plastic Surgery
DX: Z01.818 Encounter for other preprocedural examination (principal)

== ENCOUNTER 2022-06-06 07:33 | Day surgery (SDC) | payer MEDICARE ==
[2022-06-06] VITALS (13 sets, daily range): BP systolic 128–137; BP diastolic 69–80
[~2022-06-06] VITALS: Ht 167.5 cm; Wt 125.0 kg
[2022-06-06] MEDS ORDERED: LACTATED RINGERS 1,000 ML IV PRN (07:45)
[2022-06-06 08:10] LABS: BASOPHILS % (AUTO) 1 % (0-10); EOSINOPHILS # (AUTO) 0.2 10^3/uL (0.0-0.3); EOSINOPHILS % (AUTO) 6 % (0-10); HEMATOCRIT 38 % (35-52); HEMOGLOBIN 12.6 g/dL (11.5-16.0); LYMPHOCYTES # (AUTO) 1.8 10^3/uL (1.0-4.0); LYMPHOCYTES % (AUTO) 50 % (12-44); MEAN CORPUSCULAR HEMOGLOBIN 34 pg (25-34); MEAN CORPUSCULAR HGB CONC 34 g/dL (32-36); MEAN CORPUSCULAR VOLUME 101 fL (80-99); MEAN PLATELET VOLUME 10.6 fL (9.0-12.2); MONOCYTES # (AUTO) 0.6 10^3/uL (0.0-1.0); MONOCYTES % (AUTO) 17 % (0-12); NEUTROPHILS % (AUTO) 27 % (42-75); PLATELET COUNT 161 10^3/uL (130-400); WHITE BLOOD COUNT 3.7 10^3/uL (4.3-11.0)
[2022-06-06] MEDS ORDERED: ONDANSETRON 4 MG/2 ML (SDV) Z0FRAN ONE ×2 (08:35→11:54)
[2022-06-06] MEDS ORDERED: fentaNYL INJ 100 MCG/2 ML AMP ONE (08:35)
[2022-06-06] MEDS ORDERED: LIDOCAINE PF 2% 5 ML (XYLOCAINE) VIAL ONE (08:35)
[2022-06-06] MEDS ORDERED: proPOfol 200 MG/20 ML (DIPRIVAN) VIAL IV ONE (08:35)
[2022-06-06 08:42] LABS: POTASSIUM 4.3 MMOL/L (3.6-5.0)
[2022-06-06 08:43] LABS: CALCIUM 9.2 MG/DL (8.5-10.1)
[2022-06-06 08:47] LABS: CREATININE SERUM 0.79 MG/DL (0.60-1.30)
[2022-06-06] MEDS ORDERED: MUPIROCIN 2% OINT 22 GM (BACTROBAN) TUBE ONE (08:47)
[2022-06-06] MEDS ORDERED: LIDOCAINE/EPI 1%-1:100,000 (XYLOCAINE) 10 ML ONE (08:47)
[2022-06-06] MEDS ORDERED: BSS 15 ML ONE (08:47)
[2022-06-06] MEDS ORDERED: LIDOCAINE/EPI 1%-1:100,000 (XYLOCAINE) 10 ML INJ ONE (09:53)
[2022-06-06] MEDS ORDERED: BSS 15 ML TOP ONE (09:55)
[2022-06-06] MEDS ORDERED: MUPIROCIN 2% OINT 22 GM (BACTROBAN) TUBE TOP ONE (09:56)
--- NOTE | 2022-06-06 10:00 | Progress Note-Pre Operative ---
Pre-Operative Progress Note Date of Available H&P: Jun 06, 2022 Date H&P Reviewed: Jun 06, 2022 Time H&P Reviewed: 09:00 History & Physical: H&P Reviewed, Patient Examed, No changes noted Changes from last HP none Pre-Operative Diagnosis: Recurrent Left Nasal Alar Lesion EDUARDA REAGAN MD Jun 06, 2022 10:00
--- NOTE | 2022-06-06 10:01 | Progress Note-Post Operative ---
Post-Operative Progess Note Surgeon (s)/Wind Up Worker (s) Surgeon EDUARDA REAGAN MD Wind Up Worker n/a Pre-Operative Diagnosis Recurrent Left Nasal Alar Lesion Post-Operative Diagnosis same Post-Op Procedure Note Date of Procedure: Jun 06, 2022 Name of Procedure Performed: Excision of Left Nasal Alar Lesion with Reconstruction Description & Findings Description and Findings: n/a Anesthesia Type lma Estimated Blood Loss minimal Packing none. Specimen(s) collected/removed left nasal alar lesion with frozens EDUARDA REAGAN MD Jun 06, 2022 10:01
[2022-06-06] MEDS ORDERED: ACETAMINOPHEN 325 MG TABLET PO PRN (10:15)
[2022-06-06] MEDS ORDERED: HYDROcodone/APAP 5 MG/325 MG (LORTAB) TAB PO PRN (10:15)
[2022-06-06] MEDS ORDERED: HYDROmorphone 2 MG/ML VIAL (DILAUDID) IV ONE (10:30)
--- NOTE | 2022-06-06 10:31 | Anesthesia-General Post-Op ---
General Patient Condition Mental Status/LOC: Same as Preop Cardiovascular: Satisfactory Nausea/Vomiting: Absent Respiratory: Satisfactory Pain: Controlled Complications: Absent Post Op Complications Complications None Follow Up Care/Instructions Patient Instructions None needed. Anesthesia/Patient Condition Patient Condition Patient is doing well, no complaints, stable vital signs, no apparent adverse anesthesia problems. No complications reported per nursing. D/C home per [facility] Criteria: Yes MAGI ALCARAZ CRNA Jun 06, 2022 10:31
[2022-06-06] MEDS ORDERED: ONDANSETRON 4 MG/2 ML (SDV) Z0FRAN IVP ONE (12:00)
== END 2022-06-06 12:57 | disposition home or self-care (01) ==
LOC: SDC 07:33
PROVIDERS: ATTEND Otolaryngology Otolaryngology/Facial Plastic Surgery
DX: C44.311 Basal cell carcinoma of skin of nose (principal); G47.33 Obstructive sleep apnea (adult) (pediatric); I48.91 Unspecified atrial fibrillation; R91.1 Solitary pulmonary nodule
CPT/HCPCS: 36415; 80048; 85025; 87081; 93005